=== PATIENT | male | born 1980 | race Caucasian/White ===

== ENCOUNTER 2021-11-26 04:02 | Emergency (ER) | payer SELFPAY ==
[~2021-11-26] VITALS: Ht 167.6 cm; Wt 77.1 kg
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
--- NOTE | 2021-11-26 04:16 | NUR ---
DR. LAW MARIANO AT PT'S BEDSIDE
[2021-11-26] MEDS ORDERED: KETOROLAC TROMETHAMINE INJ 30 MG/ML VIAL ONE (04:22)
[2021-11-26] MEDS ORDERED: HYDROCODONE/APAP 5/325MG TABLET ONE (04:22)
--- NOTE | 2021-11-26 04:28 | NUR ---
pt taken to ct via ok
[2021-11-26] MEDS ORDERED: HYDROCODONE/APAP 5/325MG TABLET PO ONE (04:30)
[2021-11-26] MEDS ORDERED: KETOROLAC TROMETHAMINE INJ 30 MG/ML VIAL IM ONE (04:30)
--- NOTE | 2021-11-26 04:56 | NUR ---
PT RETURNED TO ER BED [address]
--- NOTE | 2021-11-26 05:41 | NUR ---
LAB AT BEDSIDE FOR BLOOD DRAW
--- NOTE | 2021-11-26 05:49 | NUR ---
RAC #18G S/L; PATENT AND INTACT
[2021-11-26 05:52] LABS: BASOPHILS % (AUTO) 0.3 % (0.0-2.0); EOSINOPHILS % (AUTO) 0.4 % (0.0-6.0); HEMATOCRIT 46 % (39-51); HEMOGLOBIN 15.8 g/dL (13.5-17.5); LYMPHOCYTES % (AUTO) 7.9 % (20.0-44.0); MEAN CORPUSCULAR HGB CONC 34 g/dl (31.0-36.0); MEAN CORPUSCULAR VOLUME 90 fL (80-96); MONOCYTES # (AUTO) 1.1 K/uL (0.1-1.30); MONOCYTES % (AUTO) 8.1 % (2.0-12.0); NEUTROPHILS % (AUTO) 83.3 % (43.0-81.0); PLATELET COUNT (AUTO) 275 K/uL (150-450); RED BLOOD CELL COUNT(AUTO) 5.16 MIL/uL (4.5-6.0); WHITE BLOOD COUNT (AUTO) 13.3 K/uL (4.3-11.0)
[2021-11-26 06:00] LABS: CALCIUM, SERUM 8.3 mg/dL (8.5-10.1); CREATININE 1.3 mg/dL (0.6-1.3); POTASSIUM 4.1 mmol/L (3.5-5.1)
[2021-11-26] MEDS ORDERED: IBUP-1957 PO (06:38)
[2021-11-26 06:48] VITALS: BP 149/89
--- NOTE | 2021-11-26 06:48 | NUR ---
Patient discharged to home in stable condition. RX Written and verbal after care instructions given. Patient verbalizes understanding of instruction. IV removed. Catheter intact and site benign. Pressure and 4x4 applied to site. No bleeding noted. PT ambulatory with a steady gait
== END 2021-11-26 06:49 | disposition home or self-care (01) ==
LOC: ER 04:15
DX: S02.2XXA Fracture of nasal bones, initial encounter for closed fracture (principal); J93.83 Other pneumothorax; Z60.2 Problems related to living alone; Z79.1 Long term (current) use of non-steroidal anti-inflammatories (NSAID); W18.30XA Fall on same level, unspecified, initial encounter; Y93.89 Activity, other specified; Y92.89 Other specified places as the place of occurrence of the external cause; Y99.8 Other external cause status
CPT/HCPCS: 36415; 70450; 70486; 71100; 71250; 72125; 80048; 85025; 85730; 96372; 99285; J1885